=== PATIENT | female | born 1945 | race Two or more races ===

== ENCOUNTER 2024-05-11 15:33 | Inpatient (IN) | payer OTHER, MEDICAID ==
[~2024-05-11] VITALS: Ht 144.8 cm; Wt 50.7 kg
--- NOTE | 2024-05-11 15:52 | ED.PDOC ---
SOB-HPI HPI Comments HPI: Poor Historian 77-year-old female presents to the emergency department for evaluation of shortness of breath for the last three days. Patient is extremely poor historian. Patient is unable to communicate with us any medications he takes or any actual past medical problems. She did say that she takes a a large list of medications. VITALS; TEMP: 98.1 F HEART RATE; 95 02 SAT; 99% on room air RR; 19 BP; 150/54 PMH: HTN, HLD, heart problems PSH: denies SOCIAL HISTORY: denies tobacco use, denies etoh use, denies drug use MEDS; denies ALLERGIES; denies . REVIEW OF SYSTEMS: CONSTITUTIONAL: Denies acute: fever, diaphoresis, chills, HEAD: Denies acute: headache, photophobia Eyes: Denies acute: Double vision, vision loss, eye pain, eye discharge. EARS: Denies acute: tinnitus, hearing loss, ear discharge, ear pain, THROAT: Denies acute: sore throat, swelling, difficulty swallowing , pain with swallowing, change in voice. NECK: Denies acute: neck pain, neck swelling, stiff neck. HEART: Denies acute : chest pain, palpitations, LUNGS: Denies acute: wheezing, cough, hemoptysis ABDOMEN: Denies acute: abdominal pain, Nausea, Vomiting, diarrhea, melena , hematemesis, hematochezia SKIN: Denies acute: rash, redness, lesions, itchiness. EXTREMITIES: Denies acute: calf pain, numbness, tingling, weakness, denies pain in extremity. Denies acute: Low back pain. Neuro: Denies acute: focal neurological deficit, motor or sensory focal neurological deficit, tremors, seizure like activity, confusion, dizziness, change in mental status, loss of bowel or bladder function, cauda equina like symptoms. : Denies acute: dysuria, hematuria, flank pain, increase in urinary frequency. PSYCH: Denies acute: hallucination, suicidal ideation, homicidal ideation. FEMALE: Denies acute: abnormal vaginal bleeding, foul odor, unusual discharge. PHYSICAL EXAM: General: no acute distress, awake and alert. Head: normocephalic, atraumatic. Neck: supple, trachea is midline, no swelling. Throat: Normal phonation. Eyes:, no erythema, no purulent discharge, no proptosis, no icterus. Heart: regular rate, regular rhythm, noted murmur Lungs: no apparent respiratory distress, Able to speak in full sentences. No wheezing, no rhonchi, no crackles. No stridors Clear to auscultation bilaterally. Abdomen: non tender to palpation, non distended, soft, no guarding, no rebound, + bowel sounds. Neuro: Awake, Alert, oriented to name, self, situation, follows commands GCS=15. Speech is normal. Skin: no petechia, no purpura, no cyanosis, non-pale, not jaundice. Lower extremities: --trace bilateral - Pitting edema no deformity, no focal swelling, no calf TTP. Makes eye contact. moves all four extremities. Face: no apparent facial droop. Ambulating in the ED independently. 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 Was a procedure done?: No Differential Dx Differential Diagnosis: Other (DDx include ACS, unstable angina, anxiety, PE, pneumothroax, neoplasm, cardiac ischemia, COPD, asthma, CHF, pleural effusion, tobacco abuse, pneumonia, hypoxia, hypercapnia, anemia., infection/sepsis., pulmonary edema. Asthma, Cardiac tamponade, infection.) X-Ray, Labs, Meds, VS Vital Signs Date Time Temp Pulse Resp B/P (MAP) Pulse Ox O2 Delivery O2 Flow Rate FiO2 05/11/24 16:00 69 05/11/24 15:46 19 99 Room Air* 0 21 05/11/24 15:46 98.1 95 19 150/54 (86) 99 Lab Test 05/11/24 16:34 Range/Units White Blood Count 5.0 4.4-10.8 10^3/uL Red Blood Count 2.23 L 4.0-5.20 10^6/uL Hemoglobin 5.1 *L 12.2-16.2 g/dL Hematocrit 16.3 L 36.0-46.0 % Mean Corpuscular Volume 73.4 L 80.0-100.0 fL Mean Corpuscular Hemoglobin 22.7 L 28.0-32.0 pg Mean Corpuscular Hemoglobin Concent 31.0 L 32.0-36.0 g/dL Red Cell Distribution Width 16.7 H 11.8-14.3 % Platelet Count 251 140-450 10^3/uL Mean Platelet Volume 7.1 6.9-10.8 fL Neutrophils (%) (Auto) 72.1 37.0-80.0 % Lymphocytes (%) (Auto) 16.0 10.0-50.0 % Monocytes (%) (Auto) 7.0 0.0-12.0 % Eosinophils (%) (Auto) 3.5 0.0-7.0 % Basophils (%) (Auto) 1.4 0.0-2.0 % Neutrophils # (Auto) 3.6 1.6-8.6 10 ^3/uL Lymphocytes # (Auto) 0.8 0.4-5.4 10 ^3/uL Monocytes # (Auto) 0.3 0-1.3 10 ^3/uL Eosinophils # (Auto) 0.2 0-0.8 10 ^3/uL Basophils # (Auto) 0.1 0-0.2 10 ^3/uL Nucleated Red Blood Cells 0.1 % Sodium Level 131 L 136-145 mmol/L Potassium Level 4.9 3.5-5.1 mmol/L Chloride Level 101 98-107 mmol/L Carbon Dioxide Level 19 L 20-31 mmol/L Anion Gap 11 5-15 Blood Urea Nitrogen 17 9-23 mg/dL Creatinine 1.12 H 0.550-1.02 mg/dL Glomerular Filtration Rate Calc 50 >90 mL/min BUN/Creatinine Ratio 15.2 10.0-20.0 Serum Glucose 118 H 74-106 mg/dL Lactic Acid Level 1.0 0.4-2.0 mmol/L Calcium Level 9.1 8.7-10.4 mg/dL Magnesium Level 2.2 1.6-2.6 mg/dL Total Bilirubin 0.4 0.2-1.0 mg/dL Aspartate Amino Transferase (AST) 25 13-40 U/L Alanine Aminotransferase (ALT) 13 7-40 U/L Alkaline Phosphatase 67 46-116 U/L Troponin I High Sensitivity 23 </=34 ng/L B-Type Natriuretic Peptide 1003.64 0-100 pg/mL Total Protein 6.5 5.7-8.2 g/dL Albumin 4.2 3.2-4.8 g/dL [address] [address] Ph: [phone] DIAGNOSTIC IMAGING Diagnostic Imaging Report : [id number] Signed PATIENT: CHERYL LEDEZMA ACCT: [id number] UNIT: [id number] : 04/05/1947 LOC: ER ROOM / BED: / AGE / SEX: 77 / F ADM STATUS: REG ER SERVICE 1559 ORDERING PHYSICIAN: DAVID MIRANDA DO PROCEDURE(s): CXRP - CHEST PORTABLE REASON: sob ORDER NUMBER(s): [id number], ACCESSION NUMBER(s): [id number] CHEST RADIOGRAPH Indication:sob Technique: Single frontal view of the chest was obtained Comparison: None FINDINGS: Lines and Tubes: None Lungs: Increased pulmonary vascular congestion bilaterally with right lower lobe airspace disease Pleura: No effusion. No pneumothorax. Cardiomediastinal contours: Cardiac size upper limits of normal. Bones: No acute osseous abnormality. IMPRESSION: 1. Findings may represent pneumonia right base or congestive failure. ATED BY: ALDO RICCI Jr., DO DICTATED DATE/TIME: 05/11/241633 SIGNED BY: ALDO RICCI Jr., DO SIGNED DATE/TIME: 05/11/241633 CC: Time of 1ST Reevaluation: 19:37 Reevaluation 1ST: Unchanged Patient Education/Counseling: Diagnosis, Treatment Family Education/Counseling: No Family Present Comments Patient presented with the above HPI.--shortness of breath----workup was initiated. patient was found with the above mentioned diagnosis. Patient was given: Lasix and packed red blood cells transfusion for symptomatic anemia hemoglobin of 5.1. Patient was given Rocephin for suspected atypical pneumonia on chest x-ray. UA is still pending. Patient ED course and VS have been stabilized. Patient has been reassessed in the ED and remained in a stable condition. Pertinent incidental findings were discussed with the patient and/or family. Patient/family voices understanding and is agreeable with plan. Patient has been observed in the ED adequate length of time to insure improvemen t/stability. patient was admitted to the medicine team for further evaluation and treatment of their presentation. All the reports of any imaging studies that were ordered by myself were reviewed by myself. Departure 1 Departure Time of Disposition: 17:08 Impression: Primary Impression: Symptomatic anemia Additional Impression: CHF exacerbation Disposition: ADMITTED INPATIENT Admit to: Tele Condition: Guarded Discharged With: Self Critical Care Note Critical Care Time?: Yes (45 min-critical care time only) Heart Score Heart Score: Heart Score Response (Comments) Value History Moderate Suspicious 1 EKG Normal 0 Age >65 2 Risk Factors 1 or 2 risk factors 1 Troponin Normal limit 0 Total 4 I personally scribed for DAVID MIRANDA DO ([email or web address]) on 05/11/24 at 15:52. Electronically submitted by Essence Mc ([email or web address]). I personally scribed for DAVID MIRANDA DO ([email or web address]) on 05/11/24 at 18:58. Electronically submitted by Essence Mc ([email or web address]). DAVID MIRANDA DO May 11, 2024 15:52
--- NOTE | 2024-05-11 16:37 | DVH ---
CHEST RADIOGRAPH Indication:sob Technique: Single frontal view of the chest was obtained Comparison: None FINDINGS: Lines and Tubes: None Lungs: Increased pulmonary vascular congestion bilaterally with right lower lobe airspace disease Pleura: No effusion. No pneumothorax. Cardiomediastinal contours: Cardiac size upper limits of normal. Bones: No acute osseous abnormality. IMPRESSION: 1. Findings may represent pneumonia right base or congestive failure.
[2024-05-11 16:53] LABS: Basophils # (auto) 0.1 10 ^3/uL (0-0.2); Basophils % (auto) 1.4 % (0.0-2.0); Eosinophils # (auto) 0.2 10 ^3/uL (0-0.8); Lymphocytes # (auto) 0.8 10 ^3/uL (0.4-5.4); Monocytes # (auto) 0.3 10 ^3/uL (0-1.3); Neutrophils # (auto) 3.6 10 ^3/uL (1.6-8.6); Nucleated Red Blood Cells % 0.1 %
[2024-05-11 16:55] LABS: Eosinophils % (auto) 3.5 % (0.0-7.0); Hematocrit 16.3 % (36.0-46.0); Mean Corpuscular Hemoglobin 22.7 pg (28.0-32.0); Mean Corpuscular Volume 73.4 fL (80.0-100.0); Neutrophils % (auto) 72.1 % (37.0-80.0); Platelet Count (auto) 251 10^3/uL (140-450); Red Blood Cells 2.23 10^6/uL (4.0-5.20); Red Cell Distribution Width 16.7 % (11.8-14.3)
[2024-05-11 17:03] LABS: Hemoglobin 5.1 g/dL (12.2-16.2)
[2024-05-11 17:22] LABS: Alanine Aminotransferase 13 U/L (7-40); Albumin 4.2 g/dL (3.2-4.8); Alkaline Phosphatase 67 U/L (46-116); Anion Gap 11 (5-15); Aspartate Aminotransferase 25 U/L (13-40); BUN/Creatinine Ratio 15.2 (10.0-20.0); Blood Urea Nitrogen 17 mg/dL (9-23); Calcium 9.1 mg/dL (8.7-10.4); Carbon Dioxide 19 mmol/L (20-31); Chloride 101 mmol/L (98-107); Glucose 118 mg/dL (74-106); Magnesium 2.2 mg/dL (1.6-2.6); Potassium 4.9 mmol/L (3.5-5.1); Sodium 131 mmol/L (136-145)
[2024-05-11 17:23] LABS: Bilirubin, Total 0.4 mg/dL (0.2-1.0); Total Protein 6.5 g/dL (5.7-8.2)
[2024-05-11] MEDS ORDERED: ACETAMINOPHEN 325 MG TAB PO PRN (17:45)
[2024-05-11] MEDS ORDERED: ONDANSETRON HCL 4 MG/2 ML VIAL IV PRN (17:45)
--- NOTE | 2024-05-11 17:49 | DVHHP2 ---
History of Present Illness Reason for Visit: weakness shortness of breath History of Present Illness 79 yo with severe weakness and shortness of breath worse on exertion for the past weak worse in the last 3 days leading to worsning functions of dailiy living was evaluated in the ed and shown to have severe anemia warning manag ement and admission high suspected UTI also based on descriptions patient for admission as per ed recommendation for continued care Cardiovascular: CHF Review of Systems Constitutional: Yes: Weakness; No: Fever, Chills, Sweats, Malaise, Other Eyes: No: Pain, Vision change, Conjunctivae inflammation, Eyelid inflammation, Other, Redness ENT: No: Ear pain, Ear discharge, Nose pain, Nose discharge, Nose congestion, Mouth pain, Mouth swelling, Throat pain, Throat swelling, Other Respiratory: Shortness of breath, SOB with excertion; No: Cough, Dry, Wheezing, Hemoptysis, Pleuritic Pain, Sputum, Wheezing, Other Cardiovascular: No: Chest Pain, Palpitations, Orthopnea, Paroxysmal Noc. Dyspnea, Edema, Lt Headedness, Other Gastrointestinal: No: Nausea, Vomiting, Abdominal Pain, Diarrhea, Constipation, Melena, Hematochezia, Other Genitourinary: No Dysuria; Frequency; No Incontinence, No Hematuria, No Retention, No Other Musculoskeletal: No: other, neck pain, shoulder pain, arm pain, back pain, hand pain, leg pain, foot pain Skin: No: Rash, Lesions, Jaundice, Bruising, Other Neurological: No: Weakness, Numbness, Incoordination, Change in speech, Confusion, Seizures, Other Allergies: Coded Allergies: NO KNOWN ALLERGIES (Unverified , 05/11/24) Exam Vital Signs Vital Signs Date Time Temp Pulse Resp B/P (MAP) Pulse Ox O2 Delivery O2 Flow Rate FiO2 05/11/24 15:46 19 99 Room Air* 0 21 05/11/24 15:46 98.1 95 150/54 (86) General Appearance: Oriented X3 HEENT: Atraumatic, PERRLA Respiratory: Clear to auscultation, Normal air movement Cardiovascular: Regular rate, Normal S1, Normal S2 Abdominal: Normal bowel sounds, Soft, No tenderness Extremities: No clubbing, No cyanosis, No edema Skin: No rashes, No breakdown Neuro: Normal gait, Normal speech Psych/Mental Status: Mood NL Labs/Xrays Labs Test 05/11/24 16:34 Range/Units White Blood Count 5.0 4.4-10.8 10^3/uL Red Blood Count 2.23 L 4.0-5.20 10^6/uL Hemoglobin 5.1 *L 12.2-16.2 g/dL Hematocrit 16.3 L 36.0-46.0 % Mean Corpuscular Volume 73.4 L 80.0-100.0 fL Mean Corpuscular Hemoglobin 22.7 L 28.0-32.0 pg Mean Corpuscular Hemoglobin Concent 31.0 L 32.0-36.0 g/dL Red Cell Distribution Width 16.7 H 11.8-14.3 % Platelet Count 251 140-450 10^3/uL Mean Platelet Volume 7.1 6.9-10.8 fL Neutrophils (%) (Auto) 72.1 37.0-80.0 % Lymphocytes (%) (Auto) 16.0 10.0-50.0 % Monocytes (%) (Auto) 7.0 0.0-12.0 % Eosinophils (%) (Auto) 3.5 0.0-7.0 % Basophils (%) (Auto) 1.4 0.0-2.0 % Neutrophils # (Auto) 3.6 1.6-8.6 10 ^3/uL Lymphocytes # (Auto) 0.8 0.4-5.4 10 ^3/uL Monocytes # (Auto) 0.3 0-1.3 10 ^3/uL Eosinophils # (Auto) 0.2 0-0.8 10 ^3/uL Basophils # (Auto) 0.1 0-0.2 10 ^3/uL Nucleated Red Blood Cells 0.1 % Sodium Level 131 L 136-145 mmol/L Potassium Level 4.9 3.5-5.1 mmol/L Chloride Level 101 98-107 mmol/L Carbon Dioxide Level 19 L 20-31 mmol/L Anion Gap 11 5-15 Blood Urea Nitrogen 17 9-23 mg/dL Creatinine 1.12 H 0.550-1.02 mg/dL Glomerular Filtration Rate Calc 50 >90 mL/min BUN/Creatinine Ratio 15.2 10.0-20.0 Serum Glucose 118 H 74-106 mg/dL Lactic Acid Level 1.0 0.4-2.0 mmol/L Calcium Level 9.1 8.7-10.4 mg/dL Magnesium Level 2.2 1.6-2.6 mg/dL Total Bilirubin 0.4 0.2-1.0 mg/dL Aspartate Amino Transferase (AST) 25 13-40 U/L Alanine Aminotransferase (ALT) 13 7-40 U/L Alkaline Phosphatase 67 46-116 U/L Troponin I High Sensitivity 23 </=34 ng/L B-Type Natriuretic Peptide 1003.64 0-100 pg/mL Total Protein 6.5 5.7-8.2 g/dL Albumin 4.2 3.2-4.8 g/dL Assessment/Plan Assessment/Plan Admit to med/surge Symptomatic anemia H/H below 6 Type and screen and transfusions ordered in the ED monitor for H/H recovery no acute bleeding noted suspected chronic buttermaker bleed CHF with acute exacerbation BNP > 1000 lasix bid monitor bp and fluid balance leena in the setting of anemia watch for worsening CR with diuretic usage patient weak and poor historian Plan discussed with: Patient My Orders Orders - TAMELA MASSEY MD Procedure Category Date Status Time Ceftriaxone Ivpb PHA 05/12/24 Transmitted Rocephin 10:00 Furosemide Injection PHA 05/11/24 Transmitted (Lasix Injection) 22:00 Admit ADMIT 05/11/24 Transmitted 17:37 Code Status CODE 05/11/24 Transmitted 17:37 Cardiac DIET 05/11/24 Transmitted Diet-2gna,Lofat,Lochol Dinner Aspirin Tablet PHA 05/12/24 Transmitted 10:00 Lipitor 40mg Hs PHA 05/11/24 Transmitted Hi-Intensity 22:00 Carvedilol Tablet PHA 05/11/24 Transmitted (Coreg Tablet) 22:00 Acetaminophen Tablet PHA 05/11/24 Verified (Tylenol Tablet) 17:45 Docusate Sodium PHA 05/12/24 Verified Capsule (Colace 10:00 Complete Blood Count LAB 05/11/24 Verified 04:00 Basic Metabolic Panel LAB 05/12/24 Verified 04:00 Ondansetron Hcl PHA 05/11/24 Verified (Zofran) 17:45 Electrocardigram EKG 05/11/24 Transmitted 17:37 Alum & Mag PHA 05/11/24 Verified Hydrox-Simethicone 17:45 Troponin-I Hs LAB 05/11/24 Transmitted 17:37 Lisinopril Tablet PHA 05/12/24 Verified (Zestril Tablet) 10:00 Cardiac BRENDA 05/11/24 Verified Rehabilitation - Outpa Notify Md Of Changes BRENDA 05/11/24 Verified From Base 17:37 Oxygen By Nasal RT 05/11/24 Verified Cannula 17:37 Channel Opener For [facility] 05/11/24 Verified 24 Hours 17:37 Electrocardigram EKG 05/11/24 Verified 18:37 Electrocardigram EKG 05/11/24 Transmitted 20:37 Troponin-I Hs LAB 05/11/24 Transmitted 18:37 Troponin-I Hs LAB 05/11/24 Transmitted 20:37 Problem List: (1) Congestive heart failure (CHF) (2) Symptomatic anemia Date of Service: May 11, 2024 Billing Provider: TAMELA MASSEY MD Common Visit Codes: 70464-[id number] INP/OBS CARE (HIGH) TAMELA MASSEY MD May 11, 2024 17:49
[2024-05-11] MEDS ORDERED: DEXTROSE (50%) 50ML SYRG IV PRN (18:00)
[2024-05-11 18:59] LABS: Eosinophils # (auto) 0.2 10 ^3/uL (0-0.8); Lymphocytes # (auto) 1.1 10 ^3/uL (0.4-5.4); Monocytes # (auto) 0.4 10 ^3/uL (0-1.3); Neutrophils # (auto) 3.7 10 ^3/uL (1.6-8.6); Nucleated Red Blood Cells % 0.1 %; Red Cell Distribution Width 17.2 % (11.8-14.3); White Blood Cell 5.4 10^3/uL (4.4-10.8)
[2024-05-11 19:01] LABS: Basophils # (auto) 0 10 ^3/uL (0-0.2); Basophils % (auto) 0.9 % (0.0-2.0); Eosinophils % (auto) 3.8 % (0.0-7.0); Hematocrit 17.3 % (36.0-46.0); Lymphocytes % (auto) 20.1 % (10.0-50.0); Mean Corpuscular Hemoglobin 22.8 pg (28.0-32.0); Mean Corpuscular Volume 75.9 fL (80.0-100.0); Monocytes % (auto) 7.2 % (0.0-12.0); Platelet Count (auto) 243 10^3/uL (140-450); Red Blood Cells 2.28 10^6/uL (4.0-5.20)
[2024-05-11 19:17] LABS: Hemoglobin 5.2 g/dL (12.2-16.2)
[2024-05-11] MEDS: FUROSEMIDE 40 MG/4 ML VIAL IV ONE (21:46)
[2024-05-11] MEDS: MAALOX PLUS or MAALOX 30 ML PO ONE (21:56)
[2024-05-11] MEDS: FUROSEMIDE 40 MG/4 ML VIAL IV SCH (21:56)
[2024-05-11] MEDS: cefTRIAXone 1GM/50ML D5W 50 ML IV ONE (21:56)
[2024-05-11] MEDS: InsuLIN REG 1unit/0.01ml Soln (100units/ml) SC SCH (22:00)
[2024-05-11] MEDS: ATORVASTATIN 20 MG TAB PO SCH (22:00)
[2024-05-11] MEDS: CARVEDILOL 3.125 MG TAB PO SCH (22:00)
[2024-05-11 22:04] LABS: Urine Bacteria FEW /hpf (None Seen); Urine Blood Negative /uL (Negative); Urine Clarity Clear (Clear); Urine Color Light-Yellow (Yellow); Urine Protein, UAD TRACE (Negative); Urine Specific Gravity 1.009 (1.001-1.035); Urine Urobilinogen Normal (Negative); Urine WBC 2 /hpf (0 - 5); Urine pH 6.5 (5.0-9.0)
[2024-05-11 23:26] VITALS: O2SAT 99
[2024-05-12] VITALS (13 sets, daily range): BP systolic 134–187; BP diastolic 27–53; PULSE 57–80; RESP 16–20; TEMP 97.5–98.4; O2SAT 93–100
[2024-05-12] MEDS: ACCU-CHEK COMFORT CURVE STRIP VI SCH (00:04)
[2024-05-12] MEDS: cefTRIAXone 1GM/50ML D5W 50 ML IV SCH (10:00)
[2024-05-12] MEDS: DOCUSATE SOD 100 MG CAP PO SCH (10:00)
[2024-05-12] MEDS: ASPirin 81 mg TAB PO SCH (10:00)
--- NOTE | 2024-05-12 10:39 | ECG ---
[facility] Test Date: 2024-05-11 Test Time: 16:00:12 Pat Name: CHERYL AGUIRRE Department: ED Room: 0291 Gender: F [employer] Supervisor: BETTY : 1945 Requested By: DAVID MIRANDA Order Number: [id number] Reading MD: Measurements Intervals [place] Rate: 69 P: 51 MA: 166 QRS: 48 QRSD: 95 T: 9 QT: 397 QTc: 426 Interpretive Statements Sinus rhythm Baseline wander in lead(s) V4 Please click the below link to view image of tracing.
[2024-05-12 11:43] LABS: Chloride 104 mmol/L (98-107); Potassium 4.1 mmol/L (3.5-5.1); Sodium 135 mmol/L (136-145)
[2024-05-12] MEDS: LISINOPRIL 5 MG TAB PO SCH (11:43)
[2024-05-12 11:44] LABS: Calcium 9.4 mg/dL (8.7-10.4)
[2024-05-12 11:45] LABS: Anion Gap 9 (5-15); Carbon Dioxide 22 mmol/L (20-31)
[2024-05-12 11:50] LABS: BUN/Creatinine Ratio 15.1 (10.0-20.0); Blood Urea Nitrogen 16 mg/dL (9-23); Glucose 106 mg/dL (74-106)
[2024-05-12] MEDS ORDERED: CARV6.2551 PO (15:51)
[2024-05-12] MEDS ORDERED: ALEN70TA74 PO (15:51)
[2024-05-12] MEDS ORDERED: LOSA-535 PO (15:51)
[2024-05-12] MEDS ORDERED: HYDR12.59 PO (15:51)
[2024-05-12] MEDS ORDERED: NIFE1TAB31 PO (15:51)
[2024-05-12] MEDS ORDERED: FERR325T20 PO (15:51)
[2024-05-12] MEDS ORDERED: CLOP75TA70 PO (15:51)
[2024-05-12] MEDS ORDERED: MECL-90 PO (15:51)
[2024-05-12] MEDS ORDERED: ATOR20TA50 PO (15:51)
[2024-05-12 16:49] LABS: Basophils # (auto) 0.1 10 ^3/uL (0-0.2); Eosinophils # (auto) 0.1 10 ^3/uL (0-0.8); Neutrophils # (auto) 3.6 10 ^3/uL (1.6-8.6); Neutrophils % (auto) 71.3 % (37.0-80.0); Red Blood Cells 3.79 10^6/uL (4.0-5.20); White Blood Cell 5.1 10^3/uL (4.4-10.8)
[2024-05-12 16:51] LABS: Basophils % (auto) 1.5 % (0.0-2.0); Eosinophils % (auto) 2.2 % (0.0-7.0); Hematocrit 29.2 % (36.0-46.0); Lymphocytes # (auto) 0.7 10 ^3/uL (0.4-5.4); Mean Corpuscular Hemoglobin 26.3 pg (28.0-32.0); Mean Corpuscular Hgb Conc. 34.1 g/dL (32.0-36.0); Mean Corpuscular Volume 77.1 fL (80.0-100.0); Monocytes # (auto) 0.6 10 ^3/uL (0-1.3); Nucleated Red Blood Cells % 0.1 %; Platelet Count (auto) 220 10^3/uL (140-450); Red Cell Distribution Width 17.8 % (11.8-14.3)
== END 2024-05-12 20:00 | disposition home or self-care (01) | DRG 811 ==
LOC: ER 15:33 → EDBD 15:33 → TELE 17:37 → OVERFLOW 20:08 → WEST WING 23:45
PROVIDERS: ADMIT Hospitalist; ATTEND Internal Medicine
PROC: 30233N1 Transfusion of Nonautologous Red Blood Cells into Peripheral Vein, Percutaneous Approach (ICD-10-PCS; principal; 2024-05-12)
DX: D64.9 Anemia, unspecified (principal); I50.43 Acute on chronic combined systolic (congestive) and diastolic (congestive) heart failure; I11.0 Hypertensive heart disease with heart failure; E78.5 Hyperlipidemia, unspecified
CPT/HCPCS: 36415; 71045; 80048; 80053; 81001; 82962; 83605; 83735; 83880; 84484; 85025; 86850; 86900; 86901; 86920; 93005; 99291; G0378